=== PATIENT | male | born 1980 | race Caucasian/White ===

== ENCOUNTER → 2016-10-17 | Outpatient (REF) | payer OTHER | LOC: M SMT 13:12 | PROVIDERS: ATTEND Nurse Practitioner Women's Health | DX: R30.0 Dysuria (principal) ==

== ENCOUNTER → 2016-11-10 | Outpatient (CLI) | payer OTHER ==
--- NOTE | 2016-11-10 09:53 | REP ---
CT of the abdomen pelvis without IV and oral contrast: Comparison is 12/21/2013. There are no renal, ureteral or bladder calculi. There is no hydronephrosis or perinephric stranding. These findings are unchanged. The visualized lung dwyer demonstrate a focal discoid atelectasis in the posterior sulcus of the left lung. The unenhanced hepatic parenchyma, gallbladder, pancreas, spleen, adrenals, kidneys, abdominal aorta, bowel and mesentery are unremarkable. Pelvis: The appendix is normal. The bladder is unremarkable. There is no adenopathy or ascites. Pelvic bowel loops are unremarkable. There are occasional phleboliths. Impression: There is no hydronephrosis. There are no renal, ureteral or bladder calculi. No change from the prior study. Signed by Michael Solis MD 11/10/2016 09:45 A
== END ==
LOC: M RAD 09:15
PROVIDERS: ATTEND Nurse Practitioner Women's Health
DX: R10.9 Unspecified abdominal pain (principal); Z87.442 Personal history of urinary calculi